=== PATIENT | female | born 1950 | race Caucasian/White ===

== ENCOUNTER → 2018-02-23 11:54 | Outpatient (CLI) | payer MEDICARE, OTHER, SELFPAY ==
[2018-02-23 12:40] LABS: Add Manual Diff / Slide Review NO; Basophils Percent Auto 0.5 % (0-2); Eosinophils Percent Auto 0.5 % (2-4); Hematocrit 42.4 % (36-46); Hemoglobin 14.2 g/dL (12.0-16.0); Lymphocytes Percent Auto 28.3 % (25-40); Mean Corpuscular HGB Conc 33.6 % (30-36); Mean Corpuscular Hemoglobin 32.3 PG (26-34); Mean Corpuscular Volume 96.2 fL (80-100); Monocytes Percent Auto 5.9 % (3-14); Neutrophils Absolute Auto 6600 /uL (3000-5900); Neutrophils Percent Auto 64.8 % (50-75); Platelet Count 280 X10^3/uL (150-400); Red Blood Cell Count 4.41 X10^6/uL (4.0-5.2); Red Cell Distribution Width 13.3 % (11.6-14.8); White Blood Cell Count 10.3 X10^3/uL (4.5-11.0)
[2018-02-23 13:31] LABS: Alanine Aminotransferase 50 IU/L (9-52); Albumin 4.3 g/dL (3.5-5.0); Albumin Globulin Ratio 1.4 (1.0-2.8); Alkaline Phosphatase 72 U/L (38-126); Aspartate Aminotransferase 38 IU/L (14-36); BUN Creatinine Ratio 16.7 (6-22); Bilirubin Total 0.7 mg/dL (0.2-1.3); Blood Urea Nitrogen 10 mg/dL (7-17); Calcium 9.8 mg/dL (8.4-10.2); Carbon Dioxide 26 mmol/L (22-32); Chloride 102 mmol/L (98-107); Estimated Glomerular Filt Rate > 60.0 mL/min (>60); Glucose 114 mg/dL (80-110); HEMOLYSIS < 15 (0-50); Potassium 4.7 mmol/L (3.4-5.1); Sodium 140 mmol/L (137-145); Total Protein 7.3 g/dL (6.3-8.2)
== END ==
PROVIDERS: Visit Provider Physician Assistant
DX: R10.9 Unspecified abdominal pain (principal); R19.7 Diarrhea, unspecified
CPT/HCPCS: 36415; 80053; 85025; 87045; 87177; 87899

== ENCOUNTER 2018-02-23 16:42 | Emergency (ER) | payer MEDICARE, OTHER, SELFPAY ==
[2018-02-23 16:54] VITALS: BP 143/76; PULSE 78; RESP 12; TEMP 36.4; O2SAT 100; BMI 29.7
--- NOTE | 2018-02-23 18:18 | ED.ABDPAIN ---
HPI - Abdominal Pain <KELLY Mcconnell - Last Filed: 02/23/18 22:20> General Chief Complaint: Abdominal Pain Stated Complaint: RECTUM PAIN Time Seen by Provider: 02/23/18 17:52 Source: patient Mode of arrival: ambulatory Limitations: no limitations History of Present Illness HPI narrative: 67-year-old healthy female that is a nonsmoker here for bilateral lower abdominal pain and also rectal pain for the past couple of days. She states that her last bowel movement was yesterday and was loose. She denies any constipation. Positive p.o. intake. She does state that she has had fever and chills as well she has had some nausea. Positive p.o. intake. She denies any urinary symptoms. No pain in the flank area. She denies any stressors or relievers of her symptoms. She denies any recent travel. Related Data Previous Rx's Medication Instructions Recorded ondansetron 4 mg PO Q6-8H PRN #10 tab 02/23/18 Allergies Allergy/AdvReac Type Severity Reaction Status Date / Time SEASONAL POLLENS Allergy Intermediate EPIPEN FOR Uncoded 02/23/18 10:59 KENTON POLLEN CAT & DOG DANDERS Allergy Mild SNEEZING, Uncoded 02/23/18 10:59 EYES ITCHING Review of Systems <KELLY Mcconnell - Last Filed: 02/23/18 22:20> Constitutional Denies chills, Denies fever(s), Denies lethargy and Denies weakness Eyes Denies change in vision, Denies eye discharge, Denies irritation and Denies loss of vision ENT Ears, Nose, Mouth, and Throat: Denies change in voice, Denies neck pain and Denies sore throat Cardiovascular Denies chest pain, Denies irregular heart rhythm, Denies lightheadedness, Denies palpitations, Denies dyspnea, Denies dyspnea on exertion and Denies orthopnea Respiratory Denies cough, Denies dyspnea, Denies dyspnea on exertion and Denies wheezing Gastrointestinal Gastrointestinal: Reports abdominal pain and Reports nausea Genitourinary Denies hematuria, Denies flank pain, Denies urinary incontinence and Denies urinary urgency Musculoskeletal Denies neck pain Integumentary/Breasts Denies pruritus, Denies erythema, Denies rash and Denies wounds Neurologic Denies confusion, Denies loss of vision and Denies weakness Psychiatric Denies anxiety, Denies confusion, Denies depression, Denies homicidal ideation and Denies suicidal ideation Endocrine Denies palpitations Hematologic/Lymphatic Denies easy bruising Allergic/Immunologic Denies wheezing Exam <KELLY Mcconnell - Last Filed: 02/23/18 22:20> Initial Vital Signs Initial Vital Signs: Vital Signs Temperature 97.6 F 02/23/18 16:54 Pulse Rate 78 02/23/18 16:54 Respiratory Rate 12 02/23/18 16:54 Blood Pressure 143/76 H 02/23/18 16:54 Pulse Oximetry 100 02/23/18 16:54 Const General: cooperative and well developed Nutritional Appearance: well nourished Orientation: alert, awake, oriented x3 and not confused HENMT Mouth: oral mucosae normal and moist mucous membranes Eyes Conjunctivae: conjunctivae normal Sclera: sclerae normal Pupils: PERRL EOM: EOM intact bilaterally Resp Effort & Inspection: normal respiratory effort, able to speak in complete sentences, no respiratory distress and no use of accessory muscles Auscultation: clear to auscultation bilaterally, no rales, no rhonchi and no wheezes Cardio Rate: regular rate Rhythm: regular rhythm Heart Sounds: no click, no gallops, no murmurs and no rubs Pulses: normal peripheral pulses GI Inspection: non-distended Palpation: soft, no hepatosplenomegaly, No guarding, No pulsatile mass and tender Auscultation: normal bowel sounds Rectal Exam: visual inspection normal and normal sphincter tone General: No CVA tenderness Skin General: no rashes or lesions noted, No jaundice and No petechiae Neuro General: alert, oriented x3, gait normal and no focal motor deficits Speech: speech normal <Bandar Venegas DO - Last Filed: 02/24/18 00:16> Initial Vital Signs Initial Vital Signs: Vital Signs Temperature 97.6 F 02/23/18 16:54 Pulse Rate 78 02/23/18 16:54 Respiratory Rate 12 02/23/18 16:54 Blood Pressure 143/76 H 02/23/18 16:54 Pulse Oximetry 100 02/23/18 16:54 Course <KELLY Mcconnell - Last Filed: 02/23/18 22:20> Orders Ordered: ED Orders 02/23/18 19:07 CT abdomen pelvis w con Stat Discontinued Medications Sodium Chloride (Normal Saline 0.9%) 1,000 mls @ 1,000 mls/hr IV BOLUS ONE Stop: 02/23/18 20:06 Last Infusion: 02/23/18 20:34 Dose: 0 mls/hr Admin: 02/23/18 19:31 Dose: 1,000 mls/hr Ondansetron HCl (Zofran) 4 mg IV NOW ONE Stop: 02/23/18 19:08 Last Admin: 02/23/18 19:31 Dose: 4 mg Vital Signs - 8 hr 02/23/18 16:54 02/23/18 19:53 02/23/18 20:59 Temperature 97.6 F Pulse Rate 78 75 70 Respiratory Rate 12 16 16 Blood Pressure 143/76 H Blood Pressure [Right Arm] 131/66 133/61 Pulse Oximetry 100 98 97 <Bandar Venegas DO - Last Filed: 02/24/18 00:16> Orders Ordered: ED Orders 02/23/18 19:07 CT abdomen pelvis w con Stat Discontinued Medications Sodium Chloride (Normal Saline 0.9%) 1,000 mls @ 1,000 mls/hr IV BOLUS ONE Stop: 02/23/18 20:06 Last Infusion: 02/23/18 20:34 Dose: 0 mls/hr Admin: 02/23/18 19:31 Dose: 1,000 mls/hr Ondansetron HCl (Zofran) 4 mg IV NOW ONE Stop: 02/23/18 19:08 Last Admin: 02/23/18 19:31 Dose: 4 mg Vital Signs - 8 hr 02/23/18 16:54 02/23/18 19:53 02/23/18 20:59 Temperature 97.6 F Pulse Rate 78 75 70 Respiratory Rate 12 16 16 Blood Pressure 143/76 H Blood Pressure [Right Arm] 131/66 133/61 Pulse Oximetry 100 98 97 MDM - Abdominal Pain <KELLY Mcconnell - Last Filed: 02/23/18 22:20> Imaging Data CT scan - abdomen: Radiologist's impression: [address] [address] [address] Scan Report Signed Patient: Lou Wyatt HMR#: [id number] : [id number]:[id number] Age/Sex: 67 / FDate of Service: 02/23/18 Loc: ED Accession Number: [id number] Procedure: CT abdomen pelvis w con Ordering Provider: John Liu PROCEDURE: CT ABDOMEN PELVIS W CON INDICATIONS: Pain to bilateral lower abdomen and to rectal area TECHNIQUE: After the administration of intravenous contrast, 5 mm thick sections acquired from the diaphragm to the symphysis. 5 mm coronal and sagittal reformats were acquired. For radiation dose reduction, the following was used: automated exposure control, adjustment of mA and/or kV according to patient size. COMPARISON: None. FINDINGS: Image quality: Excellent. ABDOMEN: Lung bases: Lung bases are clear. Heart size is normal. Solid organs: There is hypoattenuation of the liver compatible with fatty infiltration with more focal fatty change also demonstrated anteriorly in the left hepatic lobe. The gallbladder is surgically absent. Biliary system is non dilated. Pancreas enhances normally. Spleen is normal in size. No adrenal nodules. Kidneys demonstrate no hydronephrosis. Peritoneum and bowel: There is marked segmental wall thickening in the sigmoid colon with mucosal hyperemia and pericolonic fat stranding. There is a small amount of associated free fluid in the pelvis. Findings are consistent with a probable infectious or inflammatory colitis. There is a nondistended short segment in the cecum. The remainder of the on large bowel demonstrate normal caliber and wall thickness. Air-fluid levels are demonstrated throughout the small and large bowel compatible with a gastroenteritis. There is colonic diverticulosis without definite associated acute diverticulitis. No free air. Nodes and vessels: No retroperitoneal or mesenteric adenopathy by size criteria. Aorta and inferior vena cava are normal in size. Miscellaneous: No ventral hernias. PELVIS: Genitourinary: Bladder wall thickness is normal. Miscellaneous: No inguinal hernias or adenopathy. Bones: No suspicious bony lesions. No vertebral body compression fractures. IMPRESSION: 1. Segmental colitis in the sigmoid colon likely infectious or inflammatory in etiology. Given the degree of wall thickening, consider followup colonoscopy to exclude an underlying mass. 2. Air-fluid levels demonstrated throughout the small and large bowel compatible with a gastroenteritis. No evidence of bowel obstruction. Dictated by: William Briceno M.D. on 02/23/2018 at 20:11 Approved by: William Briceno M.D. on 02/23/2018 at 20:16 [facility] Narrative Medical decision making narrative: CBC and Chem panel were obtained earlier today at the clinic and were unremarkable. Urinalysis was Negative for urinary tract infection. CT of the abdomen was obtained in the emergency room and shows thickening of the colon wall. No signs of diverticulitis or appendicitis. Thickening of the colon wall presents as gastroenteritis. Will hold on antibiotics for now and treat as a viral illness. Zofran is prescribed for nausea. Plenty of fluids. [id number] Tylenol or Motrin as needed for any discomfort. Follow up with primary care provider later this week. For any worsening symptoms return to the emergency room. Discharge Plan Departure Patient Disposition: Home Clinical Impression: Abdominal pain Discharge Date/Time: 02/23/18 21:52 Interventions: ED Discharge Assessment Last Done: 02/23/18 21:50 Instructions: DI for Viral Gastroenteritis -- Adult Activity Restrictions/Additional Instructions: Laboratory results earlier today was unremarkable. CT of the abdomen shows some thickening of the wall to the colon indicating a inflammation. Signs and symptoms presents as a viral illness causing discomfort and nausea vomiting. [id number] Tylenol or Motrin as needed for any discomfort. Plenty of fluids and rest. Zofran is prescribed to help with any nausea. Follow up with primary care provider later this week. For any worsening symptoms return to the emergency room. Prescriptions: New ondansetron 4 mg tablet,disintegrating 4 mg PO Q6-8H PRN (Reason: nausea and vomiting) Qty: 10 RF: 0 Referrals: Martina Parker PA-C [Primary Care Provider] - <Bandar Venegas DO - Last Filed: 02/24/18 00:16> Cosign ED Attending Mariela Attestation: I was immediately available in the department for consultation. Documentation has been reviewed. I agree with assessment and plan.
--- NOTE | 2018-02-23 19:07 | DI.CT.S_ITS ---
PROCEDURE: CT ABDOMEN PELVIS W CON INDICATIONS: Pain to bilateral lower abdomen and to rectal area TECHNIQUE: After the administration of intravenous contrast, 5 mm thick sections acquired from the diaphragm to the symphysis. 5 mm coronal and sagittal reformats were acquired. For radiation dose reduction, the following was used: automated exposure control, adjustment of mA and/or kV according to patient size. COMPARISON: None. FINDINGS: Image quality: Excellent. ABDOMEN: Lung bases: Lung bases are clear. Heart size is normal. Solid organs: There is hypoattenuation of the liver compatible with fatty infiltration with more focal fatty change also demonstrated anteriorly in the left hepatic lobe. The gallbladder is surgically absent. Biliary system is non dilated. Pancreas enhances normally. Spleen is normal in size. No adrenal nodules. Kidneys demonstrate no hydronephrosis. Peritoneum and bowel: There is marked segmental wall thickening in the sigmoid colon with mucosal hyperemia and pericolonic fat stranding. There is a small amount of associated free fluid in the pelvis. Findings are consistent with a probable infectious or inflammatory colitis. There is a nondistended short segment in the cecum. The remainder of the on large bowel demonstrate normal caliber and wall thickness. Air-fluid levels are demonstrated throughout the small and large bowel compatible with a gastroenteritis. There is colonic diverticulosis without definite associated acute diverticulitis. No free air. Nodes and vessels: No retroperitoneal or mesenteric adenopathy by size criteria. Aorta and inferior vena cava are normal in size. Miscellaneous: No ventral hernias. PELVIS: Genitourinary: Bladder wall thickness is normal. Miscellaneous: No inguinal hernias or adenopathy. Bones: No suspicious bony lesions. No vertebral body compression fractures. IMPRESSION: 1. Segmental colitis in the sigmoid colon likely infectious or inflammatory in etiology. Given the degree of wall thickening, consider followup colonoscopy to exclude an underlying mass. 2. Air-fluid levels demonstrated throughout the small and large bowel compatible with a gastroenteritis. No evidence of bowel obstruction. Dictated by: William Briceno M.D. on 02/23/2018 at 20:11 Approved by: William Briceno M.D. on 02/23/2018 at 20:16
[2018-02-23] MEDS: ONDANSETRON 4 MG/2 ML INJ IV (19:31)
[2018-02-23] MEDS: SODIUM CHLORIDE 0.9% 1,000 ML 1000 ML IV (19:31)
[2018-02-23 19:53] VITALS: BP 131/66; PULSE 75; RESP 16; O2SAT 98
[2018-02-23 20:59] VITALS: BP 133/61; PULSE 70; RESP 16; O2SAT 97
== END 2018-02-23 21:52 | disposition home or self-care (01) ==
PROVIDERS: Emergency Provider Nurse Practitioner Family; PCP Physician Assistant
DX: R10.9 Unspecified abdominal pain (principal)
CPT/HCPCS: 36415; 36591; 74177; 80053; 85025; 87015; 87045; 87177; 87427; 87899; 96361; 96374; 99283; 99285; J2405; Q9967

== ENCOUNTER 2018-04-10 08:01 | Day surgery (SDC) | payer MEDICARE, OTHER, SELFPAY ==
[2018-04-10 08:18] VITALS: BP 144/90; PULSE 77; RESP 15; TEMP 36.2; O2SAT 97; BMI 29.6
[2018-04-10] MEDS: SODIUM CHLORIDE 0.9% 1,000 ML 200 ML IV ×2 (08:30→10:47)
[2018-04-10] MEDS: fentaNYL 250 MCG/5 ML INJ IV (10:13)
[2018-04-10] MEDS: MIDAZOLAM 5 MG/5 ML VIAL IV (10:14)
--- NOTE | 2018-04-10 10:37 | PM.HP.1 ---
History of Present Illness Date Patient Seen: 04/10/18 Time Patient Seen: 10:38 Chief complaint: [id number] Colonscopy Narrative: Patient is a woman here for a colonoscopy. She has had a change in her bowel habits and has thickening of the rectum and sigmoid on CT scan performed for abdominal pain. She is here for a colonoscopy. Patient History Medical History History of arthritis (Chronic) Irritable bowel syndrome (Chronic) History of ectopic (Resolved) Surgical History History of (Resolved) History of cholecystectomy (Resolved) Hx of breast reduction, elective (Resolved) S/P MARGOTH-BSO (Resolved) Family & Social History Family History: Reviewed 04/10/18 by Ion Awad MD Social History: household members significant other Tobacco & Substance use: Smoking Status Never smoker alcohol intake current alcohol intake frequency holiday/special occasion Substance Use Type marijuana Meds Home Medications Medication Instructions Recorded Confirmed Type ibuprofen 200 mg tablet 200 mg PO .prn PRN tab 03/10/18 04/10/18 History Tylenol 650 mg PRN PRN 04/10/18 04/10/18 History Allergies Allergy/AdvReac Type Severity Reaction Status Date / Time No Known Drug Allergies Allergy Verified 04/10/18 08:08 Review of Systems Review of Systems All systems reviewed & are unremarkable except as noted in HPI and below Exam Vital Signs (past 8 hours): - 04/10/18 08:18 Temperature 97.2 F L Pulse Rate 77 Respiratory Rate 15 Blood Pressure 144/90 H Pulse Oximetry 97 Oxygen Delivery Method Room Air Narrative Exam Narrative: Operative no apparent distress. Lungs are clear heart regular rate and rhythm without murmur gallop abdomen is soft nontender without mass liver and spleen are not enlarged. Alert and oriented Assessment & Plan Plan: Assessment/Plan Narrative: I have discussed the procedure and the rationale with the patient including risks of bleeding, perforation which would necessitate a major operation, failure to find remove all lesions and the potential to tattoo. They appeared to understand and wished to proceed.
--- NOTE | 2018-04-10 10:39 | PM.PREOP ---
Pre-operative Note Interval Note History & Physical reviewed/Exam performed by Physician: Yes Changes to H&P: No ASA Class (for procedural sedation): II
[2018-04-10] MEDS: ATROPINE 0.4 MG/ML VIAL IV (11:00)
--- NOTE | 2018-04-10 11:17 | PM.OP.ENDO ---
Operative Date/Time/Diagnoses Date of procedure: 04/10/18 Time of procedure: 11:18 Pre-op diagnosis: Abnormal CT scan Post-op diagnosis: same (Extensive sigmoid diverticulosis. No tumor or abnormality of the wall seen. No inflammation.) Procedure & Clinicians Study performed: Colonoscopy Same procedure as scheduled: Yes Indications: Abnormal CT scan of the sigmoid and rectum Surgeon: Ion Awad Procedure Notes SCOAP/Timeout: Performed Procedure in detail: The patient was placed in the left lateral decubitus position and underwent IV sedation directed by the surgeon consisting of fentanyl and Versed. Digital exam was unremarkable. The scope was inserted and advanced through the rectum into the sigmoid, descending, transverse, and ascending colon. Patient was noted to have extensive sigmoid diverticulosis.. The cecum was reached identified by the ileocecal valve and the appendiceal opening. The scope was gradually brought out. No Polyps were found . The scope ultimately was retroflexed in the rectum. The appearance was[normal]. The scope was removed and the patient tolerated the procedure well. Prep was very good. There was no inflammation wall thickening or other abnormality except diverticulosis in the sigmoid colon and rectum. Scope withdrawal time: 9.5 min Sedation minutes: 24 Findings: diverticulosis (Sigmoid) Recommendations: Colonscopy in 10 years (If no family history of colon cancer and no personal history of polyps.) Follow up: as needed Disposition: PACU
[2018-04-10 11:21] VITALS: BP 111/70; PULSE 97; RESP 15; TEMP 36.6; O2SAT 96
[2018-04-10 11:26] VITALS: BP 136/77; PULSE 94; RESP 15; O2SAT 97
[2018-04-10 11:42] VITALS: BP 123/73; PULSE 81; RESP 16; TEMP 36.7; O2SAT 96
== END 2018-04-10 11:48 | disposition home or self-care (01) ==
PROVIDERS: PCP Student in an Organized Health Care Education/Training Program; Visit Provider Specialist
PROC: 0DJD8ZZ Inspection of Lower Intestinal Tract, Via Natural or Artificial Opening Endoscopic (ICD-10-PCS; CPT 45378; principal; 2018-04-10 09:45)
DX: R93.3 Abnormal findings on diagnostic imaging of other parts of digestive tract (principal); K57.30 Diverticulosis of large intestine without perforation or abscess without bleeding; R19.4 Change in bowel habit
CPT/HCPCS: 45378; 99152; 99153; J0461; J2250; J3010

== ENCOUNTER 2019-01-22 14:17 | Emergency (ER) | payer MEDICARE, OTHER, SELFPAY ==
[2019-01-22 14:27] VITALS: BP 167/103; PULSE 80; RESP 15; TEMP 37.1; O2SAT 96; BMI 31.7
--- NOTE | 2019-01-22 14:45 | ED_ITS ---
HPI - Nausea/Vomiting/Diarrhea General Chief complaint: Nausea/Vomiting/Diarrhea Stated complaint: diarrhea, stomach pain Time Seen by Provider: 01/22/19 14:37 Source: patient Mode of arrival: Ambulatory Limitations: no limitations History of Present Illness HPI Narrative: This is a 68-year-old female comes in with complaint of abdominal pain. Patient states she has had pain intermittently for several months. She has not had fevers. Occasionally she has nausea when the pain is very intense. It is mostly left lower quadrant but can be left and right kind of both lower sides. She states she frequently gets a burning diarrhea to 4 times daily. Sometimes she will have worsening episodes. Last night she had kind of a flare or she had multiple episodes. She states that she has not had any urinary symptoms, she denies frequency, urgency or dysuria. She denies any vaginal bleeding or discharge. patient states no melena or bright red blood in stools. Sort of loose, watery. She will have burning sensation of the skin with bowel movements. She has had a colonoscopy, she was told she had diverticulosis. She was referred to Gastroenterology. She has not followed up with gastroenterology. She denies other medical history besides a total hysterectomy, cholecystectomy and breast reduction. She does have a brother who had cancer she is not sure if the source was brain, lung or bone but was likey brain or lung as the source. Related Data Home Medications Medication Instructions Recorded Confirmed Probiotic Gummy 2 cap PO DAILY 01/22/19 01/22/19 omega 1-qlu-lua-fish oil [Orange-3] 1 cap PO QAM 01/22/19 01/22/19 Allergies Allergy/AdvReac Type Severity Reaction Status Date / Time No Known Drug Allergies Allergy Verified 01/22/19 14:27 Review of Systems Review of Systems ROS Unobtainable: All systems reviewed & are unremarkable except as noted in HPI and below Constitutional Constitutional: Denies chills, Denies fever(s), Denies lethargy and Denies weakness Gastrointestinal Gastrointestinal: Reports abdominal pain, Denies melena, Denies hematochezia, Denies change in bowel habits, Reports tenesmus (burning with diarrhea), Denies constipation, Reports diarrhea, Reports nausea (only when pain is severe.) and Denies vomiting Genitourinary Genitourinary: Reports as per HPI, Denies hematuria, Denies urinary frequency, Denies dysuria, Denies flank pain, Denies urinary incontinence, Denies urinary hesitancy, Denies urinary urgency and Denies vaginal discharge Musculoskeletal Musculoskeletal: Denies back pain Neurologic Neurologic: Denies weakness Patient History Medical History History of arthritis (Chronic) History of ectopic (Resolved) Irritable bowel syndrome (Chronic) Surgical History History of (Resolved) History of cholecystectomy (Resolved) Hx of breast reduction, elective (Resolved) S/P MARGOTH-BSO (Resolved) Social History household members: significant other occupational status: previously employed Smoking Status: Never smoker alcohol intake: current substance use type: marijuana alcohol intake frequency: holidays/special occasions only Substance Use Type: marijuana Exam Narrative Exam Narrative: GENERAL: Alert and oriented x three, obese female in mild distress. HEENT: Head normocephalic, atraumatic, EOMI, pupils reactive, face symmetric, moist mucous membranes NECK: Supple, full range of motion CARDIOVASCULAR: Regular rate and rhythm without murmurs, rubs or gallops. RESPIRATORY: Breath sounds equal bilaterally, no wheezes rales or rhonchi. ABDOMEN: Soft, moderate left lower quadrant tenderness. Normoactive bowel asaf nds all 4 quadrants. No guarding or rebound, rigidity, no mass : No CVA tenderness EXTREMITIES: Normal range of motion, no clubbing or edema. Neurovascularly intact NEUROLOGICAL: Cranial nerves II through XII grossly intact. Moving all extremities SKIN: Warm, dry, no petechiae, no rashes or lesions. Initial Vital Signs Initial Vital Signs: Vital Signs Temperature 98.8 F 01/22/19 14:27 Pulse Rate 80 01/22/19 14:27 Respiratory Rate 15 01/22/19 14:27 Blood Pressure 167/103 H 01/22/19 14:27 Pulse Oximetry 96 01/22/19 14:27 Course Orders Ordered: ED Orders 01/22/19 14:41 Complete Blood Count AUTO DIFF Stat Comprehensive Metabolic Panel Stat Lipase Stat Partial Thromboplastin Time Stat Prothrombin Time INR Stat 01/22/19 15:00 CT abdomen pelvis w con Stat 01/22/19 16:00 GI Panel (Film Array) Stat Urinalysis and Microscopic Stat Discontinued Medications Sodium Chloride (Normal Saline 0.9%) 1,000 mls @ 1,000 mls/hr IV BOLUS ONE Stop: 01/22/19 15:44 Last Infusion: 01/22/19 17:26 Dose: 0 mls/hr Documented by: Infusion: 01/22/19 15:55 Dose: 1,000 mls/hr Documented by: Infusion: 01/22/19 15:10 Dose: 0 mls/hr Documented by: Admin: 01/22/19 14:59 Dose: 1,000 mls/hr Documented by: MACKENZIE Vital Signs Vital signs: Vital Signs - 8 hr 01/22/19 14:27 01/22/19 17:50 Temperature 98.8 F Pulse Rate 80 82 Respiratory Rate 15 16 Blood Pressure 167/103 H Blood Pressure [Left Arm] 148/80 H Pulse Oximetry 96 97 MDM - Nausea/Vomiting/Diarrhea Lab Data Attestation: I reviewed the patient's lab results. Result diagrams: 01/22/19 14:41 01/22/19 14:41 Labs: Lab Results 01/22/19 01/22/19 01/22/19 Range/Units 14:41 14:41 14:41 WBC 6.1 (4.5-11.0) X10^3/uL RBC 4.36 (4.0-5.2) X10^6/uL Hgb 14.1 (12.0-16.0) g/dL Hct 41.4 (36-46) % MCV 94.9 (80-100) fL MCH 32.2 (26-34) PG MCHC 34.0 (30-36) % RDW 13.3 (11.6-14.8) % Plt Count 267 (150-400) X10^3/uL Neut % (Auto) 52.8 (50-75) % Lymph % (Auto) 37.4 (25-40) % Lea % (Auto) 7.2 (3-14) % Eos % (Auto) 1.4 L (2-4) % Baso % (Auto) 1.2 (0-2) % Neut # (Auto) 3200 (7835-5135) /uL Lymph # (Auto) 2300 (5518-1118) /uL Lea # (Auto) 400 (0-900) /uL Eos # (Auto) 100 (0-450) /uL Baso # (Auto) 100 (0-100) /uL PT 10.8 (10.1-12.7) SECONDS INR 0.9 (0.9-1.3) APTT 31 (26.4-36.2) SECONDS Sodium 139 (137-145) mmol/L Potassium 4.6 (3.4-5.1) mmol/L Chloride 107 (98-107) mmol/L Carbon Dioxide 26 (22-32) mmol/L BUN 12 (7-17) mg/dL Creatinine 0.60 (0.52-1.04) mg/dL Estimated GFR > 60.0 (>60) mL/min BUN/Creatinine Ratio 20.0 (6-22) Glucose 151 H (80-110) mg/dL Calcium 9.3 (8.4-10.2) mg/dL Total Bilirubin 0.5 (0.2-1.3) mg/dL AST 30 (14-36) IU/L ALT 20 (<35) IU/L Alkaline Phosphatase 39 (38-126) U/L Total Protein 7.5 (6.3-8.2) g/dL Albumin 4.4 (3.5-5.0) g/dL Globulin 3.1 (1.7-4.1) g/dL Albumin/Globulin Ratio 1.4 (1.0-2.8) Lipase 127 (23-300) U/L Urine Color Urine Appearance Urine pH (4.5-8.0) Ur Specific [place] (1.000-1.035) Urine Protein (Negative) Urine Glucose (UA) (Negative) g/dL Urine Ketones (NEGATIVE) Urine Occult Blood (Negative) Urine Nitrate (Negative) Urine Bilirubin (NEGATIVE) Urine Urobilinogen (0.2) E.U./dL Ur Leukocyte Esterase (NEGATIVE) Urine RBC (0-5/HPF) Urine WBC (0-5/HPF) Urine Bacteria (None) Ur Culture Indicated? Micro UA Comment Stl C. cayetanensis PCR (Not Detect) Stool Rotavirus (PCR) (Not Detect) Stool Adenovirus (PCR) (Not Detect) Stool Astrovirus (PCR) (Not Detect) Stool Cryptosporidium PCR (Not Detect) Stl E.coli Shiga Tox PCR (Not Detect) St Sh/Enteroin Ecoli PCR (Not Detect) Stool E coli O157 PCR (Not Detect) Stl Enterotoxigenic E PCR (Not Detect) Stool EPEC (PCR) (Not Detect) Stl E. histolytica PCR (Not Detect) Stool Giardia Lamblia PCR (Not Detect) Stool Sapovirus (PCR) (Not Detect) Stl P. shigelloides PCR (Not Detect) St Y.enterocolitica PCR (Not Detect) Stool Vibrio (PCR) (Not Detect) Stl Vibrio cholerae PCR (Not Detect) Stl Enteroaggr Ecoli PCR (Not Detect) Stl Norovirus GI/GII PCR (Not Detect) Campylobacter (PCR) (Not Detect) C. difficile Tox (PCR) (Not Detect) Salmonella (PCR) (Not Detect) 01/22/19 01/22/19 Range/Units 16:00 16:00 WBC (4.5-11.0) X10^3/uL RBC (4.0-5.2) X10^6/uL Hgb (12.0-16.0) g/dL Hct (36-46) % MCV (80-100) fL MCH (26-34) PG MCHC (30-36) % RDW (11.6-14.8) % Plt Count (150-400) X10^3/uL Neut % (Auto) (50-75) % Lymph % (Auto) (25-40) % Lea % (Auto) (3-14) % Eos % (Auto) (2-4) % Baso % (Auto) (0-2) % Neut # (Auto) (7821-7302) /uL Lymph # (Auto) (3815-8251) /uL Lea # (Auto) (0-900) /uL Eos # (Auto) (0-450) /uL Baso # (Auto) (0-100) /uL PT (10.1-12.7) SECONDS INR (0.9-1.3) APTT (26.4-36.2) SECONDS Sodium (137-145) mmol/L Potassium (3.4-5.1) mmol/L Chloride (98-107) mmol/L Carbon Dioxide (22-32) mmol/L BUN (7-17) mg/dL Creatinine (0.52-1.04) mg/dL Estimated GFR (>60) mL/min BUN/Creatinine Ratio (6-22) Glucose (80-110) mg/dL Calcium (8.4-10.2) mg/dL Total Bilirubin (0.2-1.3) mg/dL AST (14-36) IU/L ALT (<35) IU/L Alkaline Phosphatase (38-126) U/L Total Protein (6.3-8.2) g/dL Albumin (3.5-5.0) g/dL Globulin (1.7-4.1) g/dL Albumin/Globulin Ratio (1.0-2.8) Lipase (23-300) U/L Urine Color Yellow Urine Appearance Clear Urine pH 7.5 (4.5-8.0) Ur Specific [place] <=1.005 (1.000-1.035) Urine Protein Negative (Negative) Urine Glucose (UA) Negative (Negative) g/dL Urine Ketones Negative (NEGATIVE) Urine Occult Blood Negative (Negative) Urine Nitrate Negative (Negative) Urine Bilirubin Negative (NEGATIVE) Urine Urobilinogen 0.2 (0.2) E.U./dL Ur Leukocyte Esterase Negative (NEGATIVE) Urine RBC None seen (0-5/HPF) Urine WBC None seen (0-5/HPF) Urine Bacteria None seen (None) Ur Culture Indicated? Cult not indicated Micro UA Comment Microscopic normal Stl C. cayetanensis PCR Not detected (Not Detect) Stool Rotavirus (PCR) Not detected (Not Detect) Stool Adenovirus (PCR) Not detected (Not Detect) Stool Astrovirus (PCR) Not detected (Not Detect) Stool Cryptosporidium PCR Not detected (Not Detect) Stl E.coli Shiga Tox PCR Not detected (Not Detect) St Sh/Enteroin Ecoli PCR Not detected (Not Detect) Stool E coli O157 PCR Not detected (Not Detect) Stl Enterotoxigenic E PCR Not detected (Not Detect) Stool EPEC (PCR) Not detected (Not Detect) Stl E. histolytica PCR Not detected (Not Detect) Stool Giardia Lamblia PCR Not detected (Not Detect) Stool Sapovirus (PCR) Not detected (Not Detect) Stl P. shigelloides PCR Not detected (Not Detect) St Y.enterocolitica PCR Not detected (Not Detect) Stool Vibrio (PCR) Not detected (Not Detect) Stl Vibrio cholerae PCR Not detected (Not Detect) Stl Enteroaggr Ecoli PCR Not detected (Not Detect) Stl Norovirus GI/GII PCR Not detected (Not Detect) Campylobacter (PCR) Not detected (Not Detect) C. difficile Tox (PCR) Not detected (Not Detect) Salmonella (PCR) Not detected (Not Detect) Imaging Data CT scan - abdomen: Radiologist's impression: [address] [address] [address] Scan Report Signed Patient: Lou Wyatt HMR#: [id number] : 1950cct:[id number] Age/Sex: 68 / FDate of Service: 01/22/19 Loc: ED Accession Number: [id number] Procedure: CT abdomen pelvis w con Ordering Provider: Sherrell Mcdaniel D.O. PROCEDURE: CT ABDOMEN PELVIS W CON INDICATIONS: LLQ pain, intermittent months, diarrhea. TECHNIQUE: After the administration of intravenous contrast, 5 mm thick sections acquired from the diaphragm to the symphysis. 5 mm coronal and sagittal reformats were acquired. For radiation dose reduction, the following was used: automated exposure control, adjustment of mA and/or kV according to patient size. COMPARISON: [facility], CT, CT ABDOMEN PELVIS W CON, 02/23/2018, 19:27. FINDINGS: Image quality: Excellent. ABDOMEN: Lung bases: Lung bases are clear. Heart size is normal. Solid organs: Liver is normal in size and enhancement. Gallbladder is surgic ally absent. Biliary system is non dilated. Pancreas enhances normally. Spleen is normal in size and enhancement. No adrenal nodules. Kidneys demonstrate normal size and enhancement, without hydronephrosis. Peritoneum and bowel: The bowel is suboptimally evaluated secondary to omission of oral contrast. Stomach and small bowel are within normal limits. Appendix is normal. There is thickening versus suboptimal distention of the right colon, hepatic flexure of colon, and proximal transverse colon. There is diverticulosis of the descending and sigmoid colon without evidence of superimposed diverticulitis. No free fluid or air. Nodes and vessels: No retroperitoneal or mesenteric adenopathy by size criteria. Aorta and inferior vena cava are normal in size. Miscellaneous: No ventral hernias. PELVIS: Genitourinary: Bladder wall thickness is normal. Miscellaneous: No inguinal hernias or adenopathy. Bones: No suspicious bony lesions. No vertebral body compression fractures. IMPRESSION: 1. Suboptimal evaluation of the bowel secondary to omission of oral contrast. 2. Thickening versus suboptimal distention of the right colon and proximal tra nsverse colon. Findings may indicate suboptimal distention, ischemia, infection, and inflammation. 3. Diverticulosis of the descending and sigmoid colon without evidence of superimposed acute diverticulitis. 4. Normal appendix. Dictated by: Sonali Arevalo M.D. on 01/22/2019 at 15:17 Approved by: Sonali Arevalo M.D. on 01/22/2019 at 15:20 [facility] Narrative Medical decision making narrative: Patient's CT shows possible thickening but maybe suboptimal and artifact. Discussed with patient she would defer any ant ibiotics at this point, she would really like referral to Gastroenterology and was given one. She called [facility] to set up an appointment. Patient will continue with her normal home regimen and we discussed reasons to return emergently. Patient feels comfortable with the plan we reviewed her labs, urinalysis. Stool sample is negative. Discharge Plan Departure Patient Disposition: Home Clinical Impression: Abdominal pain Discharge Date/Time: 01/22/19 17:52 Instructions: DI for Abdominal Pain-Adult Activity Restrictions/Additional Instructions: Follow up with gastroenterology, call Friday for an appointment. Her labs today show a slightly elevated glucose but otherwise are normal. CT today shows possible thickening of the right lower abdomen but this may not be from suboptimal evaluation on CT. Return to the ER for fevers greater 100.4 F, rapidly worsening pain, persistent vomiting, lightheadedness or passing-out, black or bloody stools, new swelling of her abdomen or other new or concerning symptoms. Prescriptions: No Action Orange-3 350 mg-235 mg- 90 mg-597 mg Capsule,Delayed Release(Dr/Ec) 1 cap PO QAM RF: 0 Probiotic Gummy 2 cap PO DAILY RF: 0 Referrals: Addy Cox MD [Non-Staff] - Maylin Cooper MD [Physician] -
--- NOTE | 2019-01-22 14:49 | PC.NURSE ---
Pt with h/o diverticulosis and IBS. having chronic diarrhea since november every morning from 4-6am. reports brown to yellow in color and bile-y and explosive with foul odor denies h/o CDiff and reports does not take antibiotics regularly. well appearing. denies abd pain or nausea at this time. IV placed and labs drawn and sent per protocol orders. Pt made aware of need of stool sample.
[2019-01-22 14:52] LABS: Add Manual Diff / Slide Review NO; Basophils Absolute Auto 100 /uL (0-100); Basophils Percent Auto 1.2 % (0-2); Eosinophils Absolute Auto 100 /uL (0-450); Eosinophils Percent Auto 1.4 % (2-4); Hematocrit 41.4 % (36-46); Hemoglobin 14.1 g/dL (12.0-16.0); Lymphocytes Absolute Auto 2300 /uL (1100-4500); Lymphocytes Percent Auto 37.4 % (25-40); Mean Corpuscular Hemoglobin 32.2 PG (26-34); Mean Corpuscular Volume 94.9 fL (80-100); Monocytes Absolute Auto 400 /uL (0-900); Monocytes Percent Auto 7.2 % (3-14); Neutrophils Absolute Auto 3200 /uL (1500-7000); Neutrophils Percent Auto 52.8 % (50-75); Platelet Count 267 X10^3/uL (150-400); Red Blood Cell Count 4.36 X10^6/uL (4.0-5.2); Red Cell Distribution Width 13.3 % (11.6-14.8); White Blood Cell Count 6.1 X10^3/uL (4.5-11.0)
[2019-01-22 14:55] LABS: INR 0.9 (0.9-1.3); Prothrombin Time 10.8 SECONDS (10.1-12.7)
[2019-01-22 14:58] LABS: PTT Partial Thromboplastin Tim 31 SECONDS (26.4-36.2)
[2019-01-22] MEDS: SODIUM CHLORIDE 0.9% 1,000 ML 1000 ML IV (14:59)
[2019-01-22 15:00] LABS: Alanine Aminotransferase 20 IU/L (<35); Albumin 4.4 g/dL (3.5-5.0); Albumin Globulin Ratio 1.4 (1.0-2.8); Alkaline Phosphatase 39 U/L (38-126); Aspartate Aminotransferase 30 IU/L (14-36); Bilirubin Total 0.5 mg/dL (0.2-1.3); Blood Urea Nitrogen 12 mg/dL (7-17); Calcium 9.3 mg/dL (8.4-10.2); Carbon Dioxide 26 mmol/L (22-32); Chloride 107 mmol/L (98-107); Estimated Glomerular Filt Rate > 60.0 mL/min (>60); Globulin 3.1 g/dL (1.7-4.1); Glucose 151 mg/dL (80-110); HEMOLYSIS 55 (0-50); Lipase 127 U/L (23-300); Sodium 139 mmol/L (137-145); Total Protein 7.5 g/dL (6.3-8.2)
--- NOTE | 2019-01-22 15:00 | DI.CT.S_ITS ---
PROCEDURE: CT ABDOMEN PELVIS W CON INDICATIONS: LLQ pain, intermittent months, diarrhea. TECHNIQUE: After the administration of intravenous contrast, 5 mm thick sections acquired from the diaphragm to the symphysis. 5 mm coronal and sagittal reformats were acquired. For radiation dose reduction, the following was used: automated exposure control, adjustment of mA and/or kV according to patient size. COMPARISON: [facility], CT, CT ABDOMEN PELVIS W CON, 02/23/2018, 19:27. FINDINGS: Image quality: Excellent. ABDOMEN: Lung bases: Lung bases are clear. Heart size is normal. Solid organs: Liver is normal in size and enhancement. Gallbladder is surgically absent. Biliary system is non dilated. Pancreas enhances normally. Spleen is normal in size and enhancement. No adrenal nodules. Kidneys demonstrate normal size and enhancement, without hydronephrosis. Peritoneum and bowel: The bowel is suboptimally evaluated secondary to omission of oral contrast. Stomach and small bowel are within normal limits. Appendix is normal. There is thickening versus suboptimal distention of the right colon, hepatic flexure of colon, and proximal transverse colon. There is diverticulosis of the descending and sigmoid colon without evidence of superimposed diverticulitis. No free fluid or air. Nodes and vessels: No retroperitoneal or mesenteric adenopathy by size criteria. Aorta and inferior vena cava are normal in size. Miscellaneous: No ventral hernias. PELVIS: Genitourinary: Bladder wall thickness is normal. Miscellaneous: No inguinal hernias or adenopathy. Bones: No suspicious bony lesions. No vertebral body compression fractures. IMPRESSION: 1. Suboptimal evaluation of the bowel secondary to omission of oral contrast. 2. Thickening versus suboptimal distention of the right colon and proximal transverse colon. Findings may indicate suboptimal distention, ischemia, infection, and inflammation. 3. Diverticulosis of the descending and sigmoid colon without evidence of superimposed acute diverticulitis. 4. Normal appendix. Dictated by: Sonali Arevalo M.D. on 01/22/2019 at 15:17 Approved by: Sonali Arevalo M.D. on 01/22/2019 at 15:20
[2019-01-22 15:01] LABS: Potassium 4.6 mmol/L (3.4-5.1)
[2019-01-22 16:10] LABS: Bacteria Urine None Seen; RBC Urine None Seen (0-5/HPF); WBC Urine None Seen (0-5/HPF)
[2019-01-22 16:17] LABS: Appearance Urine UA CLEAR; Bilirubin Urine UA NEGATIVE (NEGATIVE); Color Urine UA YELLOW; Glucose Urine UA NEGATIVE (Negative); Ketones Urine UA NEGATIVE (NEGATIVE); Leukocyte Esterase Urine UA NEGATIVE (NEGATIVE); Nitrite Urine UA NEGATIVE (Negative); Occult Blood Urine UA NEGATIVE (Negative); Protein Urine UA NEGATIVE (Negative); Specific Gravity Urine UA <=1.005 (1.000-1.035); Urobilinogen Urine UA 0.2 E.U./dL (0.2)
[2019-01-22 16:47] LABS: pH Urine UA 7.5 (4.5-8.0)
[2019-01-22 16:48] LABS: Culture Indicated Urine Cult Not Indicated; Urine Comments Microscopic Normal
[2019-01-22 17:32] LABS: Adenovirus F 40/41 Not Detected (Not Detect); Astrovirus Not Detected (Not Detect); Campylobacter Not Detected (Not Detect); Clostridium difficile toxin AB Not Detected (Not Detect); Cryptosporidium Not Detected (Not Detect); Cyclospora cayetanensis Not Detected (Not Detect); Entamoeba histolytica Not Detected (Not Detect); Enteroaggregative E.coli Not Detected (Not Detect); Enteropathogenic E.coli Not Detected (Not Detect); Enterotoxigenic E.coli It/st Not Detected (Not Detect); Giardia lamblia Not Detected (Not Detect); Norovirus GI/GII Not Detected (Not Detect); Plesiomonsa shigelloides Not Detected (Not Detect); Rotavirus A Not Detected (Not Detect); Salmonella Not Detected (Not Detect); Sapovirus Not Detected (Not Detect); Shiga-like toxin-prod E.coli Not Detected (Not Detect); Shigella/Enteroinvasive E.coli Not Detected (Not Detect); Vibrio Not Detected (Not Detect); Vibrio cholerae Not Detected (Not Detect); Yersinia enterocolitica Not Detected (Not Detect)
[2019-01-22 17:50] VITALS: BP 148/80; PULSE 82; RESP 16; O2SAT 97
== END 2019-01-22 17:52 | disposition home or self-care (01) ==
PROVIDERS: Emergency Provider Emergency Medicine
DX: R10.9 Unspecified abdominal pain (principal); R79.89 Other specified abnormal findings of blood chemistry; R19.7 Diarrhea, unspecified; R11.0 Nausea
CPT/HCPCS: 36415; 74177; 80053; 81001; 83690; 85025; 85610; 85730; 87507; 96360; 96361; 99283; 99284; Q9967

== ENCOUNTER → 2019-02-03 12:39 | Outpatient (CLI) | payer MEDICARE, OTHER, SELFPAY ==
--- NOTE | 2019-02-03 | DI.CT.S_ITS ---
PROCEDURE: CT ABDOMEN PELVIS W CON INDICATIONS: Diarrhea, unspecified TECHNIQUE: After the administration of oral and intravenous contrast, 5 mm thick sections acquired from the diaphragms to the symphysis. 5 mm thick coronal and sagittal reformats were performed. For radiation dose reduction, the following was used: automated exposure control, adjustment of mA and/or kV according to patient size. COMPARISON: [facility], CT, CT ABDOMEN PELVIS W CON, 01/22/2019, 15:00. FINDINGS: Image quality: Excellent. ABDOMEN: Lung bases: Lung bases are clear. Heart size is normal. Solid organs: There is diffuse hypoattenuation consistent with hepatic steatosis. The gallbladder is surgically absent. No intrahepatic or extra hepatic biliary ductal dilatation. The pancreatic parenchyma enhances normally. The spleen is unremarkable. No adrenal nodules are identified. No hydronephrosis. Subcentimeter hypoattenuating foci within the kidneys bilaterally are too small to fully characterize on this exam, but likely represent renal cysts. There is a punctate calcification of the inferior pole of the left kidney which may represent a vascular calcification or nonobstructing nephrolith. Peritoneum and bowel: Appendix is best seen on axial image 63 of series 2. There is again thickening of the right colon, hepatic flexure of colon, and proximal/right transverse colon that is similar to comparison exam of 01/22/19. There is also now wall thickening of the sigmoid colon. There is extensive diverticulosis of the sigmoid colon without evidence of acute diverticulitis. Nodes and vessels: No retroperitoneal or mesenteric adenopathy. Aorta and inferior vena cava are normal in caliber. PELVIS: Genitourinary: Bladder wall thickness is normal. Miscellaneous: No inguinal hernias or adenopathy. Bones: No suspicious bony lesions. No vertebral body compression fractures. Mild multilevel degenerative changes of the lumbar spine. IMPRESSION: 1. Persistent wall thickening of the right colon and proximal/right transverse colon, with additional thickening of the sigmoid colon. Findings may represent a colitis (secondary to ischemia, infection, or inflammation) versus suboptimal distention, with a colitis being favored given persistent findings when compared with prior comparison CT of 01/22/19. Consider followup imaging after the current clinical episode resolves with possible colonoscopy to exclude a colonic lesion. 2. Punctate calcification of the inferior left kidney which may represent a vascular calcification or nonobstructing nephrolith. 3. Sigmoid colon diverticulosis without CT evidence of acute diverticulitis. Dictated by: Edward Doll, M.D. on 02/03/2019 at 15:39 Approved by: Connor Doll M.D. on 02/03/2019 at 16:12
== END ==
PROVIDERS: PCP Nurse Practitioner Family; Visit Provider Nurse Practitioner Family
DX: R19.7 Diarrhea, unspecified (principal); K57.30 Diverticulosis of large intestine without perforation or abscess without bleeding; N28.89 Other specified disorders of kidney and ureter; M47.816 Spondylosis without myelopathy or radiculopathy, lumbar region; Z90.49 Acquired absence of other specified parts of digestive tract
CPT/HCPCS: 74177; Q9967

== ENCOUNTER → 2020-05-05 14:40 | Outpatient (CLI) | payer MEDICARE, OTHER, SELFPAY ==
[2020-05-05] MEDS: COVID-19 VACC #1, MRNA(MOD) 100 MCG/0.5 ML VIAL IM (14:48)
== END ==
PROVIDERS: PCP Nurse Practitioner Family; Visit Provider Internal Medicine
DX: Z23 Encounter for immunization (principal)
CPT/HCPCS: 0011A; 91301

== ENCOUNTER → 2020-06-02 07:34 | Outpatient (CLI) | payer MEDICARE, OTHER, SELFPAY ==
[2020-06-02] MEDS: COVID-19 VACC #2, MRNA(MOD) 100 MCG/0.5 ML VIAL IM (07:41)
== END ==
PROVIDERS: PCP Nurse Practitioner Family; Visit Provider Internal Medicine
DX: Z23 Encounter for immunization (principal)
CPT/HCPCS: 0012A; 91301

== ENCOUNTER → 2020-07-24 08:34 | Outpatient (CLI) | payer MEDICARE, OTHER, SELFPAY ==
[2020-07-24 09:19] LABS: Add Manual Diff / Slide Review NO; Basophils Absolute Auto 100 /uL (0-100); Basophils Percent Auto 0.9 % (0-2); Eosinophils Absolute Auto 100 /uL (0-450); Eosinophils Percent Auto 2.4 % (2-4); Hematocrit 40.9 % (36-46); Hemoglobin 13.9 g/dL (12.0-16.0); Lymphocytes Absolute Auto 3300 /uL (1100-4500); Lymphocytes Percent Auto 57.2 % (25-40); Mean Corpuscular Hemoglobin 32.6 PG (26-34); Monocytes Absolute Auto 300 /uL (0-900); Monocytes Percent Auto 5.2 % (3-14); Neutrophils Absolute Auto 2000 /uL (1500-7000); Neutrophils Percent Auto 34.3 % (50-75); Platelet Count 232 X10^3/uL (150-400); Red Blood Cell Count 4.26 X10^6/uL (4.0-5.2); Red Cell Distribution Width 13.5 % (11.6-14.8); White Blood Cell Count 5.7 X10^3/uL (4.5-11.0)
[2020-07-24 10:26] LABS: Alanine Aminotransferase 26 IU/L (<35); Albumin Globulin Ratio 1.4 (1.0-2.8); Alkaline Phosphatase 52 U/L (38-126); Aspartate Aminotransferase 29 IU/L (14-36); BUN Creatinine Ratio 23.1 (6-22); Bilirubin Total 0.2 mg/dL (0.2-1.3); Blood Urea Nitrogen 15 mg/dL (7-17); Calcium 9.7 mg/dL (8.4-10.2); Carbon Dioxide 28 mmol/L (22-32); Chloride 107 mmol/L (98-107); Cholesterol 239 mg/dL (140-199); Estimated Glomerular Filt Rate > 60.0 mL/min (>60); Globulin 2.9 g/dL (1.7-4.1); Glucose 119 mg/dL (80-110); HDL Cholesterol 51 mg/dL (40-60); HEMOLYSIS < 15 (0-50); LDL Cholesterol Calculated 157 mg/dL (<100); Potassium 5.1 mmol/L (3.4-5.1); Sodium 140 mmol/L (137-145); Total Protein 6.9 g/dL (6.3-8.2); Triglycerides 157 mg/dL (35-150)
[2020-07-24 10:43] LABS: Vitamin D 25 Hydroxy (D3) 35.2 ng/mL (30.0-100.0)
== END ==
PROVIDERS: PCP Physician Assistant; Referring Provider Physician Assistant; Visit Provider Physician Assistant
DX: M54.31 Sciatica, right side (principal); E78.2 Mixed hyperlipidemia; J30.2 Other seasonal allergic rhinitis; E55.9 Vitamin D deficiency, unspecified
CPT/HCPCS: 36415; 80053; 80061; 82306; 85025

== ENCOUNTER → 2021-07-10 14:48 | Outpatient (CLI) | payer MEDICARE, OTHER, SELFPAY ==
--- NOTE | 2021-07-10 | DI.MG.S_ITS ---
BILATERAL DIGITAL SCREENING MAMMOGRAM 3D/2D WITH CAD: 07/10/2021 CLINICAL: Routine screening. Comparison is made to exam dated: 10/07/2009 mammogram - out side. The tissue of both breasts is predominantly fatty. Current study was also evaluated with a Computer Aided Detection (CAD) system. No significant masses, calcifications, or other findings are seen in either breast. There has been no significant interval change. IMPRESSION: NEGATIVE There is no mammographic evidence of malignancy. A 1 year screening mammogram is recommended. This exam was interpreted at Station ID: [id number]. NOTE: For mammograms, a report in lay terms will be sent to the patient. Approximately 15% of breast malignancies will not be visualized mammographically. In the management of a palpable breast mass, a negative mammogram must not discourage biopsy of a clinically suspicious lesion. Electronically Signed By: Myrna sanchez/hari:07/10/2021 15:33:01 letter sent: Normal Exam ACR BI-RADS Category 1: Negative [id number]
== END ==
PROVIDERS: PCP Physician Assistant; Referring Provider Physician Assistant; Visit Provider Physician Assistant
DX: Z12.31 Encounter for screening mammogram for malignant neoplasm of breast (principal)
CPT/HCPCS: 77063; 77067

== ENCOUNTER → 2021-09-26 14:13 | Outpatient (CLI) | payer MEDICARE, OTHER, SELFPAY | PROVIDERS: PCP Physician Assistant; Visit Provider Physician Assistant | DX: R30.0 Dysuria (principal) | CPT/HCPCS: 87086 ==

== ENCOUNTER → 2024-07-09 17:05 | Outpatient (CLI) | payer MEDICARE, OTHER, SELFPAY ==
--- NOTE | 2024-07-09 17:07 | DI.MG.S_ITS ---
MM screening mammo BI: 07/09/2024. BI-RADS: 1 CLINICAL: 73-year old female for bilateral screening mammogram. Tyrer-Cuzick lifetime risk of 2.8%. No personal or first-degree family history of breast cancer. History of ovarian cancer in one first-degree relative. The patient is status-post reduction mammoplasty. PRIOR EXAMS 07/10/2021. MAMMOGRAPHY TECHNIQUE: 2D and 3D (tomosynthesis) digital mammographic views obtained, with additional images as needed for full coverage. Current study was also evaluated with a Computer Aided Detection (CAD) system. DENSITY B. There are scattered areas of fibroglandular density. MAMMOGRAPHY FINDINGS Bilateral: No suspicious mass, asymmetry, microcalcification, or other abnormality seen. IMPRESSION: * No evidence of malignancy. RECOMMENDATIONS Bilateral * Annual screening mammography. OVERALL ASSESSMENT CATEGORY BI-RADS-1: Negative. [employer] recommends annual screening mammography beginning at age 40 for women with average risk of breast cancer. ELECTRONICALLY SIGNED: Anselmo Wilson M.D. on 07/12/2024 at 10:44:55 AM PT Interpreting Station ID: [id number]
== END ==
PROVIDERS: PCP Physician Assistant; Referring Provider Physician Assistant
DX: Z12.31 Encounter for screening mammogram for malignant neoplasm of breast (principal); Z80.41 Family history of malignant neoplasm of ovary
CPT/HCPCS: 77063; 77067

== ENCOUNTER 2025-03-15 21:01 | Emergency (ER) | payer MEDICARE, OTHER, SELFPAY ==
[2025-03-15] VITALS (10 sets, daily range): BP systolic 153–184; BP diastolic 65–89; PULSE 53–74; RESP 18–25; TEMP 36.5; O2SAT 92–98; BMI 26.9
--- NOTE | 2025-03-15 21:04 | EKG_ITS ---
[facility] [address] [place] [address] Test Date: 2025-03-15 Pat Name: Lou Wyatt Department: [facility] Room: Gender: Female Scrap Baller: DANIEL : 1950 Requested By: Order Number: [id number] Reading MD: Evaristo Ellison MD Measurements Intervals [place] Rate: 80 P: 75 ME: 146 QRS: 0 QRSD: 100 T: 111 QT: 372 QTc: 429 Interpretive Statements Sinus rhythm with occasional premature ventricular complexes Left ventricular hypertrophy with repolarization abnormality ( [place] product ) Anteroseptal infarct , age undetermined NO PRIOR TRACING Electronically Signed On 03-16-2025 7:52:35 PST by Evaristo Ellison MD
--- NOTE | 2025-03-15 21:10 | EKG_ITS ---
[facility] [address] [place] [address] Test Date: 2025-03-15 Pat Name: Lou Wyatt Department: [facility] Room: Gender: Female [employer]: : 1950 Requested By: Order Number: [id number] Reading MD: Evaristo Ellison MD Measurements Intervals [place] Rate: 57 P: 56 WI: 154 QRS: -11 QRSD: 106 T: 125 QT: 394 QTc: 383 Interpretive Statements Sinus bradycardia Left ventricular hypertrophy with repolarization abnormality ( R in aVL , [place] product ) Anteroseptal infarct , age undetermined Electronically Signed On 03-16-2025 7:52:43 PST by Evaristo Ellison MD
--- NOTE | 2025-03-15 21:10 | DI.RAD.S_ITS ---
PROCEDURE: XR CHEST 1V INDICATIONS: Shortness of breath TECHNIQUE: One view of the chest was acquired. COMPARISON: None. FINDINGS AND IMPRESSION: No airspace consolidation or pleural effusion on this single view study. Normal heart size. Slightly prominent right mid mediastinal, likely ascending aortic contour. Mild degenerative osseous changes. Dictated by: Matty Guerra M.D. on 03/15/2025 at 21:25 Approved by: Matty Guerra M.D. on 03/15/2025 at 21:26
[2025-03-15] MEDS: ALBUTEROL/IPRATROPIUM 3 ML AMPUL INH (21:18)
[2025-03-15 21:36] LABS: Add Manual Diff / Slide Review NO; Hematocrit 45.4 % (36-46); Hemoglobin 15.1 g/dL (12.0-16.0); Lymphocytes Absolute Auto 2500 /uL (1100-4500); Mean Corpuscular HGB Conc 33.2 % (30-36); Mean Corpuscular Hemoglobin 31.8 PG (26-34); Mean Corpuscular Volume 95.6 fL (80-100); Platelet Count 241 X10^3/uL (150-400)
[2025-03-15 21:41] LABS: INR 1.0 (0.9-1.3); Prothrombin Time 11.1 SECONDS (9.4-12.5)
[2025-03-15 21:46] LABS: Alanine Aminotransferase 23 IU/L (<35); Albumin 4.6 g/dL (3.5-5.0); Albumin Globulin Ratio 1.4 (1.0-2.8); Alkaline Phosphatase 54 U/L (38-126); Blood Urea Nitrogen 13 mg/dL (7-17); Calcium 9.2 mg/dL (8.4-10.2); Carbon Dioxide 20 mmol/L (22-32); Chloride 107 mmol/L (98-107); Estimated Glomerular Filt Rate > 60 mL/min (>60); Globulin 3.4 g/dL (1.7-4.1); Glucose 97 mg/dL (70-99); HEMOLYSIS 16 (0-50); Potassium 4.0 mmol/L (3.4-5.1); Sodium 138 mmol/L (137-145); Total Protein 8.0 g/dL (6.3-8.2)
[2025-03-15 21:47] LABS: Lactate (Lactic Acid) 1.0 mmol/L (0.7-2.1)
[2025-03-15 21:57] LABS: Influenza A - CEPHEID Flu A NEGATIVE (NEGATIVE); Influenza B - CEPHEID Flu B NEGATIVE (NEGATIVE)
[2025-03-15 21:58] LABS: NT-proBNP (BNP-Adult 18+) 143 pg/mL (<125); Troponin I < 0.012 ng/mL (0.01-0.034)
[2025-03-15 22:00] LABS: COVID-19 CEPHEID 4-PLEX PCR Negative (Negative)
--- NOTE | 2025-03-15 23:13 | ED.SOB ---
HPI - SOB/Dyspnea General Chief Complaint: Shortness of Breath/Dyspnea Stated Complaint: SOB chest px x 4 days HEADACHE Time Seen by Provider: 03/15/25 21:21 Source: patient Mode of arrival: Ambulatory Limitations: no limitations History of Present Illness HPI Narrative: Patient is a 74-year-old female who presents with 5 day history of shortness of breath and chest pain. Past medical history significant for asthma, persistent postmenopausal hot flashes in his on estrogen replacement therapy. States that she has been having congestion and coughing. She states that she has been use utilizing her albuterol inhaler without any symptomatic relief. No prior recent asthma exacerbation, no ICU hospitalization or intubation. No fevers, chills, nausea, vomiting. No chest pain, dyspnea, diaphoresis. Related Data Home Medications ?Medication ?Instructions ?Recorded ?Confirmed Probiotic Gummy 2 cap PO DAILY 01/22/19 09/26/21 omega 3 350 mg-dha 235 mg-epa 90 1 cap PO QAM 01/22/19 09/26/21 mg-fish oil 597 mg capsule,delay rel ([place]-3) estradiol 0.5 mg tablet 0.5 mg PO DAILY 09/26/21 09/26/21 Previous Rx's ?Medication ?Instructions ?Recorded prednisone 20 mg tablet 40 mg (2 x 20 mg) PO DAILY #10 tabs 03/16/25 prednisone 20 mg tablet 40 mg (2 x 20 mg) PO DAILY #5 tabs 03/16/25 Allergies Allergy/AdvReac Type Severity Reaction Status Date / Time No Known Drug Allergies Allergy Verified 09/26/21 14:21 Review of Systems Review of Systems Narrative: See HPI. Patient History Medical History (Updated 03/16/25 @ 03:43 by Kate Hardy MD) Irritable bowel syndrome History of arthritis History of ectopic Surgical History Hx of breast reduction, elective S/P MARGOTH-BSO History of cholecystectomy History of Family History Sister Hypertension Gallstones Mother Ovarian cancer Stroke Father Heart disease Social History household members: significant other occupational status: previously employed Smoking Status: Former smoker alcohol intake: current substance use type: marijuana Smoking Status: Former smoker alcohol intake frequency: holidays/special occasions only Exam Narrative Exam Narrative: Vitals: Afebrile, hypertensive, bradycardic. Gen: Well-developed, well-nourished, in mild respiratory distress Cards: Bradycardic, no murmurs rubs or gallops Pulm: Has coarse breath sounds and end expiratory wheezing in multiple lung massey Abd: Soft, nondistended, nontender to palpation Ext: No peripheral edema bilaterally Neuro: A&O x4, cranial nerves grossly intact moving all 4 extremities spontaneously Psych: Appropriate Initial Vital Signs Initial Vital Signs: Vital Signs Temperature 97.7 F 03/15/25 21:06 Pulse Rate 53 L 03/15/25 21:06 Respiratory Rate 18 03/15/25 21:06 Blood Pressure 174/80 H 03/15/25 21:06 Pulse Oximetry 95 03/15/25 21:06 Oxygen Delivery Method Room Air 03/15/25 21:06 Scores Wells' Criteria for PE Citation:: 0.0?points Low risk group: 1.3% chance of PE in an ED population. Another study assigned scores <= as ?PE Unlikely? and had a 3% incidence of PE. Course Orders Ordered: Discontinued Medications Albuterol (Albuterol 2.5 Mg/3 Ml Neb (Adult)) 2.5 mg INH NOW ONE Stop: 03/15/25 23:27 Last Admin: 03/15/25 23:53 Dose: 2.5 mg Documented By: MR Albuterol (Albuterol 2.5 Mg/3 Ml Neb (Adult)) 10 mg INH NOW ONE Stop: 03/16/25 01:46 Last Admin: 03/16/25 02:11 Dose: 10 mg Documented By: MR Albuterol/Ipratropium (Albuterol/Ipratropium 3 Ml Ampul) 3 ml INH NOW ONE Stop: 03/15/25 21:16 Last Admin: 03/15/25 21:18 Dose: 3 ml Documented By: MR Benzonatate (Benzonatate 100 Mg Capsule) 100 mg PO NOW ONE Stop: 03/15/25 23:29 Last Admin: 03/15/25 23:41 Dose: 100 mg Documented By: Ipratropium [place] (Ipratropium 0.5 Mg/2.5 Ml Neb) 0.5 mg INH NOW ONE Stop: 03/15/25 23:27 Last Admin: 03/15/25 23:53 Dose: 0.5 mg Documented By: Prednisone (Prednisone 20 Mg Tablet) 60 mg PO NOW ONE Stop: 03/16/25 03:44 Last Admin: 03/16/25 04:05 Dose: 60 mg Documented By: HNG Vital Signs Vital signs: Vital Signs - 8 hr 03/15/25 23:56 03/16/25 00:00 03/16/25 00:01 Pulse Rate 71 65 67 Respiratory Rate 20 14 13 Blood Pressure Pulse Oximetry 94 98 99 Oxygen Delivery Method 03/16/25 00:01 03/16/25 00:30 03/16/25 00:30 Pulse Rate 70 Respiratory Rate 13 Blood Pressure 119/64 119/65 Pulse Oximetry 94 Oxygen Delivery Method 03/16/25 01:08 03/16/25 01:30 03/16/25 02:00 Pulse Rate 76 78 Respiratory Rate 15 26 H Blood Pressure Pulse Oximetry 87 L 92 91 Oxygen Delivery Method Room Air Room Air Room Air 03/16/25 02:13 03/16/25 02:30 03/16/25 03:00 Pulse Rate 70 75 95 H Respiratory Rate 20 12 13 Blood Pressure Pulse Oximetry 94 97 90 L Oxygen Delivery Method Room Air Room Air 03/16/25 03:30 03/16/25 04:00 03/16/25 04:09 Pulse Rate 86 87 81 Respiratory Rate 18 27 H 25 H Blood Pressure Pulse Oximetry 92 93 93 Oxygen Delivery Method Room Air Room Air 03/16/25 04:09 Pulse Rate Respiratory Rate Blood Pressure 110/62 Pulse Oximetry Oxygen Delivery Method MDM - SOB/Dyspnea Lab Data 03/15/25 21:24 03/15/25 21:24 Labs: Lab Results 03/15/25 03/15/25 Range/Units 21:13 21:24 WBC 6.0 (4.5-11.0) X10^3/uL RBC 4.75 (4.0-5.2) X10^6/uL Hgb 15.1 (12.0-16.0) g/dL Hct 45.4 (36-46) % MCV 95.6 (80-100) fL MCH 31.8 (26-34) PG MCHC 33.2 (30-36) % RDW 14.0 (11.6-14.8) % Plt Count 241 (150-400) X10^3/uL Neut % (Auto) 39.0 L (50-75) % Lymph % (Auto) 41.8 H (25-40) % [place] % (Auto) 10.5 (3-14) % Eos % (Auto) 6.4 H (2-4) % Baso % (Auto) 2.3 H (0-2) % Neut # (Auto) 2400 (8254-4423) /uL Lymph # (Auto) 2500 (0760-8609) /uL Merrick # (Auto) 600 (0-900) /uL Eos # (Auto) 400 (0-450) /uL Baso # (Auto) 100 (0-100) /uL PT 11.1 (9.4-12.5) SECONDS INR 1.0 (0.9-1.3) D-Dimer 935 H (<500) ng/ml Sodium 138 (137-145) mmol/L Potassium 4.0 (3.4-5.1) mmol/L Chloride 107 (98-107) mmol/L Carbon Dioxide 20 L (22-32) mmol/L BUN 13 (7-17) mg/dL Creatinine 0.69 (0.52-1.04) mg/dL Estimated GFR > 60 (>60) mL/min BUN/Creatinine Ratio 18.8 (6-22) Glucose 97 (70-99) mg/dL Lactate 1.0 (0.7-2.1) mmol/L Calcium 9.2 (8.4-10.2) mg/dL Total Bilirubin 0.4 (0.2-1.3) mg/dL AST 32 (14-36) IU/L ALT 23 (<35) IU/L Alkaline Phosphatase 54 (38-126) U/L Troponin I < 0.012 (0.01-0.034) ng/mL NT-Pro-B Natriuret Pep 143 H (<125) pg/mL Total Protein 8.0 (6.3-8.2) g/dL Albumin 4.6 (3.5-5.0) g/dL Globulin 3.4 (1.7-4.1) g/dL Albumin/Globulin Ratio 1.4 (1.0-2.8) SARS-CoV-2 (PCR) Negative (Negative) Influenza A (RT-PCR) Flu a negative (NEGATIVE) Influenza B (RT-PCR) Flu b negative (NEGATIVE) RSV (PCR) Positive A (Negative) Imaging Data CT scan - chest: Radiologist's Impression: INDINGS: Image quality: Diagnostic Lungs and pleura: No airspace consolidation or pleural effusion. [id number] diffuse peribronchial thickening and scattered areas of mucous plugging. Small pulmonary nodules are present for example fissural nodule in the right mid lung measures 4 mm. Follow-up imaging is optional if the patient is considered at elevated risk for pulmonary malignancy. Mediastinum, heart, and esophagus: Ascending aorta measures 3.6 cm. No acute pulmonary embolism. Unremarkable CT appearance of the esophagus. No enlarged lymph nodes seen by size criteria. Chest wall and thyroid: Unremarkable Upper abdomen: No gross abnormality on these arterial phase images. Cholecystectomy clips are present. Bones: No aggressive appearing osseous abnormality. Degenerative changes. IMPRESSION: No acute pulmonary embolism. No airspace disease or pleural effusion. Peribronchial wall thickening and scattered areas of mucous plugging, possibly bronchitis/atypical infection. Other findings above. Chest x-ray: Radiologist's Impression: PROCEDURE: XR CHEST 1V INDICATIONS: Shortness of breath TECHNIQUE: One view of the chest was acquired. COMPARISON: None. FINDINGS AND IMPRESSION: No airspace consolidation or pleural effusion on this single view study. Normal heart size. Slightly prominent right mid mediastinal, likely ascending aortic contour. Mild degenerative osseous changes. [facility] Narrative Medical decision making narrative: Patient is a 74-year-old female, with history of asthma and estrogen replacement therapy, with acute worsening short of breath and congestion over the last 5 days necessitating increased use of her rescue inhaler. Differential diagnosis: ACS, pulmonary embolism, viral versus bacterial URI acute asthma exacerbation, COPD, hypertensive pulmonary edema, other. Labs: CBC without no leukocytosis, neutrophil 39. No anemia or thrombocytopenia. Normal coags. D-dimer 935. Chemistry panel largely negative. Troponin undetectable. Pro BNP 143. Viral panel positive for RSV. Imaging: CXR: No consolidation or pleural effusion or any imaging findings consistent with URI. CTA: No filling defects consistent with pulmonary embolism. Patient has scattered areas of mucous plugging read as possible bronchitis versus atypical infection. Incidental findings to include small pulmonary nodules measuring 4 mm was discussed with the patient in need for interval follow up imaging. EKG: Sinus bradcardia, atrial 57, WY 154, QT 394, QTC 383, left axis deviation, left ventricular hypertrophy, no ectopy or evidence of ischemia, no EKG to compare to. ED Course: Patient arrived to ED, satting 97% on room air however she was hypersensitive. I did not initially evaluate her however nursing staff stated she was very coarse and in moderate respiratory distress. At the time of my evaluation, patient had already received albuterol treatment and stated that she felt mildly better. Viral panel had returned positive for RSV. On my physical examination, patient was not in respiratory distress however she had coarse breath sounds in wheezing in all lung massey. She had multiple attempts at use utilizing her rescue inhaler at home without any symptomatic relief. Although her Wells criteria for PE was 0 her current use of exogenous estradiol and prolonged use for several years put her at higher risk for underlying pulmonary embolism. Shared decision-making was performed with patient who stated in the setting of elevated dimer as well as hormone use, she would like to be scanned to rule out underlying pulmonary embolism causing her respiratory symptoms. Workup was significant for D-dimer 935, viral panel positive for RSV, undetectable troponin and nonischemic EKG. CTA had several incidental findings which was discussed with the patient. No PE however her lungs were consistent with atypical infection. At discharge, patient stated that she wanted to go home. She was tachypneic but stable inciting above 95% on room air. I discussed the viral course of RSV, her likely persistent symptoms over the next few days, however they should progressively subside. She was informed of return precautions that would necessitate re-evaluation in the ER by physician it was discharge in improved condition to home. Discharge Plan Departure Patient Disposition: Home Clinical Impression: Asthma with exacerbation, Respiratory syncytial virus (RSV) Instructions: DI for Asthma -- Adult, DI for Respiratory Syncytial Virus -- Adults, DI for Acute Bronchitis Activity Restrictions/Additional Instructions: You were seen in the ER for chest pain and shortness of breath for 5 days. In the ER: - Your viral panel was positive for RSV. Please read the handout provided. - I believe that you are having an asthma exacerbation due to to infection with RSV, you were given several doses of albuterol nebulized treatment with interval improvement of your symptoms. - Cardiac workup was not consistent with a heart attack. - Given your prolong history of estrogen replacement therapy, a D-dimer was obtained and elevated concerning for a blood clot. CT was negative for any blood clots in your lungs. It did appear that you had bronchitis on imaging. Plan: - Continue home albuterol as prescribed and as needed. - You were given 60 mg of prednisone (steroid), start 40 mg tomorrow on . - Return to the ER if you develop any new or worsening symptoms to include shortness of breath, chest pain, nausea, vomiting, clamminess, or any other concerning signs or symptoms. Thank you for allowing me to be part of your care. Many Sandhya! - Dr. Hardy Prescriptions: New prednisone 20 mg tablet 40 mg PO DAILY Qty: 5 0RF prednisone 20 mg tablet 40 mg PO DAILY Qty: 10 0RF No Action estradiol 0.5 mg tablet 0.5 mg PO DAILY Rx Instructions: off 5 days; repeat cycle [place]-3 350 mg-235 mg- 90 mg-597 mg Capsule,Delayed Release(Dr/Ec) 1 cap PO QAM Probiotic Gummy 2 cap PO DAILY Stand Alone Forms: Patient Portal/API
[2025-03-15] MEDS: BENZONATATE 100 MG CAPSULE PO (23:41)
[2025-03-15] MEDS: IPRATROPIUM 0.5 MG/2.5 ML NEB INH (23:53)
[2025-03-15] MEDS: ALBUTEROL 2.5 MG/3 ML NEB (ADULT) INH (23:53)
[2025-03-16] VITALS (12 sets, daily range): BP systolic 110–119; BP diastolic 62–65; PULSE 65–95; RESP 12–27; O2SAT 87–99
--- NOTE | 2025-03-16 00:48 | DI.CT.S_ITS ---
PROCEDURE: CT ANGIO CHEST PE PROTOCOL INDICATIONS: elevated ddimer TECHNIQUE: After the administration of intravenous contrast, 2 mm thick sections acquired from the pulmonary apices to the posterior costophrenic angles. 3-dimensional maximum intensity projection (MIP) coronal and sagittal reformats were then acquired through the thorax. For radiation dose reduction, the following was used: automated exposure control, adjustment of mA and/or kV according to patient size. COMPARISON: [facility], CR, XR CHEST 1V, 03/15/2025, 21:11. FINDINGS: Image quality: Diagnostic Lungs and pleura: No airspace consolidation or pleural effusion. [id number] diffuse peribronchial thickening and scattered areas of mucous plugging Small pulmonary nodules are present for example fissural nodule in the right mid lung measures 4 mm. Follow-up imaging is optional if the patient is considered at elevated risk for pulmonary malignancy. Mediastinum, heart, and esophagus: Ascending aorta measures 3.6 cm. No acute pulmonary embolism. Unremarkable CT appearance of the esophagus. No enlarged lymph nodes seen by size criteria. Chest wall and thyroid: Unremarkable Upper abdomen: No gross abnormality on these arterial phase images. Cholecystectomy clips are present. Bones: No aggressive appearing osseous abnormality. Degenerative changes. IMPRESSION: No acute pulmonary embolism. No airspace disease or pleural effusion. Peribronchial wall thickening and scattered areas of mucous plugging, possibly bronchitis/atypical infection. Other findings above. Dictated by: Matty Guerra M.D. on 03/16/2025 at 1:19 Approved by: Matty Guerra M.D. on 03/16/2025 at 1:23
[2025-03-16] MEDS: ALBUTEROL 2.5 MG/3 ML NEB (ADULT) 10 MG INH (02:11)
== END 2025-03-16 04:30 | disposition home or self-care (01) ==
PROVIDERS: Family Medicine; Emergency Provider Student in an Organized Health Care Education/Training Program
DX: J45.901 Unspecified asthma with (acute) exacerbation (principal); B97.4 Respiratory syncytial virus as the cause of diseases classified elsewhere; R06.02 Shortness of breath; R07.89 Other chest pain
CPT/HCPCS: 36415; 71045; 71275; 80053; 83605; 83880; 84484; 85025; 85379; 85610; 87637; 93005; 93010; 94640; 99284; J7613; Q9967